=== PATIENT | male | born 1980 | race Caucasian/White ===

== ENCOUNTER 2016-08-18 09:09 | Emergency (ER) | payer BC ==
[~2016-08-18] VITALS: Ht 177.8 cm; Wt 76.6 kg
[2016-08-18 09:15] VITALS: BP 135/88
[2016-08-18] MEDS ORDERED: NAPROSYN500 MG PO (10:44)
== END 2016-08-18 11:11 | disposition home or self-care (01) ==
LOC: EXP 09:09 → EME 09:09 → EXP 11:11
DX: S22.32XA Fracture of one rib, left side, initial encounter for closed fracture (principal); S62.620A Displaced fracture of middle phalanx of right index finger, initial encounter for closed fracture; W18.30XA Fall on same level, unspecified, initial encounter
CPT/HCPCS: 71100; 73140; 99281; 99283

== ENCOUNTER 2016-08-20 15:25 | Emergency (ER) | payer BC ==
[~2016-08-20] VITALS: Ht 177.8 cm; Wt 73.8 kg
[~2016-08-20 15:25] MED LIST: NAPROSYN500 MG PO
[2016-08-20] MEDS ORDERED: PERCOCET 5/31 TABLET PO (16:24)
[2016-08-20 16:35] VITALS: BP 133/79
== END 2016-08-20 16:36 | disposition home or self-care (01) ==
LOC: EME 15:25
DX: R07.81 Pleurodynia (principal); S22.32XD Fracture of one rib, left side, subsequent encounter for fracture with routine healing; W18.30XD Fall on same level, unspecified, subsequent encounter
CPT/HCPCS: 71100; 99281; 99284